=== PATIENT | male | born 1990 | race Caucasian/White ===

== ENCOUNTER 2022-01-28 16:08 | Emergency (ER) | payer MEDICAID ==
[~2022-01-28] VITALS: Ht 182.9 cm; Wt 83.5 kg
[2022-01-28 16:48] VITALS: BP_SYST 148
[2022-01-28] MEDS ORDERED: IBUPROFEN 800 MG TABLET PO ONE (18:00)
[2022-01-28] MEDS ORDERED: HYDROcodone/ACETAMIN 5-325 MG TAB (NORCO/ VICODIN) PO ONE (18:00)
[2022-01-28] MEDS ORDERED: IBUP-1971 PO ×2 (18:33→18:52)
[2022-01-28] MEDS ORDERED: HYDR-3917 PO ×2 (18:33→18:52)
[2022-01-28 19:23] VITALS: BP_SYST 148
== END 2022-01-28 19:23 | disposition home or self-care (01) ==
LOC: SED 16:08
DX: S92.102A Unspecified fracture of left talus, initial encounter for closed fracture (principal); X50.1XXA Overexertion from prolonged static or awkward postures, initial encounter; Y93.89 Activity, other specified; Y92.89 Other specified places as the place of occurrence of the external cause; Y99.8 Other external cause status
CPT/HCPCS: 99283